=== PATIENT | male | born 1970 | race Caucasian/White ===

== ENCOUNTER 2019-03-06 16:47 | Emergency (ER) | payer OTHER ==
--- NOTE | 2019-03-06 17:36 | RAD ---
XR Shoulder Rt 3 View STANDARD History: Trauma Comparison: None. Findings: No acute fracture or malalignment. Ribs are intact. 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 Small erosions of the footprint greater tuberosity. Impression: No acute osseous abnormality.
== END 2019-03-06 18:39 ==
LOC: ERS 16:47
DX: S43.431A Superior glenoid labrum lesion of right shoulder, initial encounter (principal); S46.211A Strain of muscle, fascia and tendon of other parts of biceps, right arm, initial encounter; W21.09XA Struck by other hit or thrown ball, initial encounter; Y93.73 Activity, racquet and hand sports